=== PATIENT | male | born 1970 | race American Indian/Alaskan Native ===

== ENCOUNTER 2021-02-13 23:16 | Emergency (ER) | payer SELFPAY ==
[2021-02-13 23:50] VITALS: BP 150/97
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
== END 2021-02-14 03:30 | disposition home or self-care (01) ==
LOC: ED 23:16
DX: S40.021A Contusion of right upper arm, initial encounter (principal); M41.9 Scoliosis, unspecified; M54.5 Low back pain; M54.9 Dorsalgia, unspecified; I10 Essential (primary) hypertension; Z79.899 Other long term (current) drug therapy; V87.7XXA Person injured in collision between other specified motor vehicles (traffic), initial encounter; Y93.89 Activity, other specified; Y92.488 Other paved roadways as the place of occurrence of the external cause; Y99.8 Other external cause status
CPT/HCPCS: 72100; 99283